=== PATIENT | female | born 1990 | race African-American/Black ===

== ENCOUNTER 2018-07-16 07:50 | Inpatient (IN) | payer SELFPAY ==
[~2018-07-16] VITALS: Ht 162.6 cm; Wt 54.9 kg
[2018-07-16] MEDS ORDERED: SODIUM CHLORIDE 0.9% 1,000 ML IV ONE (10:33)
[2018-07-16] MEDS ORDERED: METOCLOPRAMIDE HCL 10MG/2ML VIAL IV STA (10:33)
[2018-07-16 10:44] LABS: BASOPHILS % 0.4 % (0.0-2.0); EOSINOPHILS % 0.3 % (0.0-5.0); HEMATOCRIT. 37.3 % (36.0-48.0); HEMOGLOBIN. 11.9 g/dL (12.0-16.0); LYMPHOCYTES % 27.7 % (20.0-50.0); MEAN CORPUSCULAR HEMOGLOBIN 21.9 pg (28.0-32.0); MEAN CORPUSCULAR VOLUME 68.6 fL (81.0-99.0); MEAN PLATELET VOLUME 8.1 fl (7.4-10.4); MONOCYTES % 2.9 % (2.0-8.0); NEUTROPHILS % 68.7 % (40.0-76.0); PLATELET 375 x1000/uL (130-400); RED BLOOD CELL COUNT 5.43 mill/uL (4.2-5.4); RED CELL DISTRIBUTION WIDTH 21.2 % (11.6-14.6)
[2018-07-16] MEDS ORDERED: DIPHENHYDRAMINE 50MG/ML VIAL IV ONE (10:45)
[2018-07-16 10:46] LABS: CHLORIDE 106 mEq/L (98-107)
[2018-07-16 10:50] LABS: HCG SCREEN NEGATIVE; PROTHROMBIN TIME 10.2 sec (9.6-11.0)
[2018-07-16 10:54] LABS: PLATELET ESTIMATE NORMAL
[2018-07-16] MEDS ORDERED: SODIUM CHLORIDE 0.9% 1000ML BAG (SEPSIS BOLUS) IV ONE (11:30)
[2018-07-16] MEDS ORDERED: ONDANSETRON HCL 4MG/2ML INJ IV ONE (13:30)
[2018-07-16 15:14] LABS: CLARITY URINE CLEAR (CLEAR); COLOR URINE YELLOW (YELLOW); KETONES URINE NEGATIVE (NEGATIVE); LEUKOCYTE ESTERASE URINE NEGATIVE (NEGATIVE); NITRITE URINE NEGATIVE (NEGATIVE); OCCULT BLOOD URINE NEGATIVE (NEGATIVE); PH URINE 8.5 (4.5-8.0); PROTEIN URINE NEGATIVE (NEGATIVE); SPECIFIC GRAVITY URINE 1.017 (1.005-1.030); UROBILINOGEN URINE 0.2 E.U./dL (0.2-1.0)
[2018-07-16] MEDS ORDERED: DEXT 5%/0.45% NACL 1000ML 1,000 ML IV SCH (15:52)
[2018-07-16] MEDS ORDERED: CLONIDINE 0.1MG TABLET PO PRN (16:00)
[2018-07-16] MEDS ORDERED: ONDANSETRON HCL 4MG/2ML INJ IV PRN (16:00)
[2018-07-16] MEDS ORDERED: ACETAMINOPHEN 325MG TABLET PO PRN (16:00)
[2018-07-16] MEDS ORDERED: HYDROCODONE/ACETAMINOPHEN 5/325MG TABLET PO PRN (16:00)
[2018-07-16 22:00] VITALS: BP 111/69
[2018-07-16] MEDS: HYDROMORPHONE HCL/PF 2MG/ML CPJ IV PRN (22:48)
[2018-07-16 23:00] VITALS: BP 111/69
[2018-07-17] VITALS: BP 97/45
[2018-07-17 04:00] VITALS: BP 134/77
[2018-07-17] MEDS: HYDROMORPHONE HCL/PF 2MG/ML CPJ IV PRN (05:19)
[2018-07-17 06:42] LABS: BASOPHILS % 0.1 % (0.0-2.0); HEMATOCRIT. 30.5 % (36.0-48.0); HEMOGLOBIN. 9.7 g/dL (12.0-16.0); LYMPHOCYTES % 12.8 % (20.0-50.0); MEAN CORPUSCULAR HEMOGLOBIN 21.6 pg (28.0-32.0); MEAN CORPUSCULAR VOLUME 68.1 fL (81.0-99.0); MEAN PLATELET VOLUME 7.8 fl (7.4-10.4); MONOCYTES % 6.8 % (2.0-8.0); NEUTROPHILS % 80.3 % (40.0-76.0); PLATELET 351 x1000/uL (130-400); RED BLOOD CELL COUNT 4.48 mill/uL (4.2-5.4); RED CELL DISTRIBUTION WIDTH 20.5 % (11.6-14.6)
[2018-07-17 07:14] LABS: CHLORIDE 104 mEq/L (98-107)
[2018-07-17 08:00] VITALS: BP 105/60
[2018-07-17] MEDS ORDERED: FAMOTIDINE 20MG/2ML VIAL IV SCH (09:00)
[2018-07-17 12:28] VITALS: BP 105/60
== END 2018-07-17 12:35 | disposition home or self-care (01) | DRG 249 ==
LOC: ER 07:50 → SUPCPDRO 15:52 → 6EST 18:37 → ENRESERV 20:12
PROVIDERS: ADMIT Hospitalist; ATTEND Emergency Medicine
DX: K52.9 Noninfective gastroenteritis and colitis, unspecified (principal); D64.9 Anemia, unspecified; E28.2 Polycystic ovarian syndrome; F12.90 Cannabis use, unspecified, uncomplicated
CPT/HCPCS: 36415; 76830; 76856; 83605; 84703; 96374; 99285; J1170; J1200; J2405; J2765; J3490; J7030